=== PATIENT | female | born 1965 | race Caucasian/White ===

== ENCOUNTER 2019-03-15 10:40 | Day surgery (SDC) | payer OTHER ==
[~2019-03-15 10:40] MED LIST: COZAAR25 MG PO; CYMBALTA20 MG PO; LYRICA20 MG/1 ML PO; PLAQUENIL; [UNRECOGNIZED DRUG - OTHER]
== END 2019-03-15 19:45 | disposition home or self-care (01) ==
LOC: CIR.AMB 10:40
DX: N84.0 Polyp of corpus uteri (principal); D25.0 Submucous leiomyoma of uterus